=== PATIENT | female | born 1940 | race Two or more races ===

== ENCOUNTER → 2017-11-17 | Emergency (ER) | payer OTHER ==
[~2017-11-17] VITALS: Ht 165.1 cm; Wt 95.3 kg
[~2017-11-17] MED LIST: AVALIDE; PNEU16DI2; PROTONIX40 M1; SYNTHROID112 MCG; TOPROL XL100 M1; XARELTO20 MG
== END | disposition home or self-care (01) ==
LOC: ER 11:25
DX: K29.60 Other gastritis without bleeding (principal)

== ENCOUNTER 2017-11-21 17:33 | Emergency (ER) | payer OTHER ==
[~2017-11-21] VITALS: Ht 165.1 cm; Wt 95.3 kg
[~2017-11-21 17:33] MED LIST changes: -PNEU16DI2
[2017-11-21] MEDS ORDERED: PNEU16DI2 (17:59)
== END 2017-11-22 02:33 | disposition home or self-care (01) ==
LOC: ER 17:33
DX: K29.70 Gastritis, unspecified, without bleeding (principal)

== ENCOUNTER → 2022-10-01 | Emergency (ER) | payer OTHER ==
[~2022-10-01] VITALS: Ht 165.1 cm; Wt 95.3 kg
[~2022-10-01] MED LIST changes: +DICLOFENAC SODI75 MG PO; +IRBESARTAN300 MG PO; +METFORMIN HCL1000 M3 PO; +PNEU16DI2
== END | disposition home or self-care (01) ==
LOC: ER 14:46
DX: M12.571 Traumatic arthropathy, right ankle and foot (principal); Z88.0 Allergy status to penicillin

== ENCOUNTER 2024-12-12 19:58 | Inpatient (IN) | payer OTHER ==
[~2024-12-12] VITALS: Ht 162.6 cm; Wt 89.8 kg
[2024-12-12] MEDS ORDERED: FAMOtidine 10 MG/ML (4ML VIAL) IV ONE (21:30)
[2024-12-12] MEDS ORDERED: 0.9 % SODIUM CHLORIDE 1,000 ML IV ONE (21:30)
[2024-12-12] MEDS ORDERED: FAMOTIDINE/PF 20 MG/2 ML VIAL ONE (21:55)
[2024-12-12] MEDS ORDERED: KETOROLAC TROMETHAMINE 30 MG VIAL IV ONE (23:45)
[2024-12-13 00:28] LABS: BASO % 0.4 % (0.1-1.2); EOS # 0.06 (0.04-0.54); EOS % 0.6 % (0.7-7.0); HEMATOCRIT 43.1 % (34.1-44.9); HEMOGLOBIN 13.9 g/dL (11.2-15.7); LYMPH # 1.28 (1.18-3.74); MEAN CORPUSCULAR HEMOGLOBIN 31.9 pg (25.6-32.2); MONO # 0.66 (0.24-0.82); MONO % 6.7 % (4.7-12.5); NEUT # 7.77 (1.56-6.13); NEUT % 79.1 % (34.0-71.1); PLATELET COUNT 218 K/uL (163-369); RED BLOOD COUNT 4.36 M/uL (3.93-5.22); RED CELL DISTRIBUTION WIDTH 12.9 % (11.6-14.4)
[2024-12-13 00:48] LABS: PROTHROMBIN TIME 10.9 SECONDS (9.0-11.5)
[2024-12-13 01:08] LABS: ALBUMIN 3.8 gm/dL (3.4-5.0); BILIRUBIN TOTAL 1.24 mg/dL (0.3-1.2); CALCIUM 10.8 mg/dL (8.5-10.1); CREATININE SERUM 0.89 mg/dL (0.55-1.02); GFR 60.14; GLOBULINA 4.1 G/DL (2.4-3.5); POTASSIUM 4.19 mEq/L (3.5-5.1); TOTAL PROTEIN 7.9 gm/dL (6.4-8.2)
[2024-12-13] MEDS ORDERED: KETOROLAC TROMETHAMINE 30 MG VIAL ONE (01:48)
[2024-12-13] MEDS ORDERED: LIDOCAINE HCL VISCOUS 20MG/ML BLIST 15ML MM ONE (07:17)
[2024-12-13] MEDS ORDERED: CIPROFLOXACIN IN 5 % DEXTROSE 200 ML IV SCH (17:29)
[2024-12-13] MEDS ORDERED: FAMOTIDINE/PF 20 MG in 0.9 % SODIUM CHLORIDE 8 ML IV PUSH SCH (17:30)
[2024-12-13] MEDS ORDERED: 0.9 % SODIUM CHLORIDE 1,000 ML IV SCH (17:30)
[2024-12-13] MEDS ORDERED: ONDANSETRON HCL 4 MG in 0.9 % SODIUM CHLORIDE 50 ML IV PRN (17:30)
[2024-12-13] MEDS ORDERED: MORPHINE SULFATE 4 MG/ML CARTRIDGE IV PRN (17:30)
[2024-12-13] MEDS ORDERED: DEXTROSE 50 % IN WATER 0.5 G/ML VIAL IV PRN (17:45)
[2024-12-13] MEDS ORDERED: INSULIN LISPRO 1,000 UNIT/10 ML UNITS SUBCUTANEO PRN (17:45)
[2024-12-13] MEDS ORDERED: ENALAPRILAT DIHYDRATE 1.25 MG/ML VIAL IV SCH (18:00)
[2024-12-13] MEDS ORDERED: ENALAPRILAT DIHYDRATE 1.25 MG/ML VIAL IV ONE (18:11)
[2024-12-13] MEDS ORDERED: CIPROFLOXACIN IN 5 % DEXTROSE 400 MG/200 ML PIGGYBAG IV ONE (18:11)
[2024-12-13] MEDS ORDERED: FAMOTIDINE/PF 20 MG/2 ML VIAL ONE (18:12)
[2024-12-13] MEDS ORDERED: METRONIDAZOLE/SODIUM CHLORIDE 500 MG/100 ML PIGGYBACK IV ONE (18:12)
[2024-12-13 18:32] LABS: INR 1.04; PROTHROMBIN TIME 11.3 SECONDS (9.0-11.5)
[2024-12-13 19:02] VITALS: BP 116/72; O2SAT 96
[2024-12-13] MEDS ORDERED: METRONIDAZOLE/SODIUM CHLORIDE 100 ML IV SCH (21:00)
[2024-12-14 02:47] VITALS: BP 118/72; O2SAT 97
[2024-12-14 09:09] VITALS: BP 107/66; O2SAT 95
[2024-12-14 16:42] LABS: URINE APPEARANCE Cloudy; URINE BILIRRUBIN Small (NEGATIVE); URINE BLOOD Negative; URINE COLOR Orange; URINE GLUCOSE Negative (NEGATIVE); URINE KETONE Negative (NEGATIVE); URINE LEUKOCYTE Small; URINE NITRATE Negative; URINE PROTEIN Trace (NEGATIVE)
[2024-12-14 16:51] LABS: URINE CAST 3.38 uL (0.0-1.40)
[2024-12-14 17:01] VITALS: BP 121/67; O2SAT 98
[2024-12-14 17:28] LABS: URINE BACTERIA > 9821.5 uL (0.0-1933); URINE EPITHELIAL CELLS > 201.7 uL (0.0-38.8); URINE WBC > 5548.3 uL (0.0-23.2)
[2024-12-15 02:13] VITALS: BP 106/62; O2SAT 98
[2024-12-15 08:48] VITALS: BP 130/80
== END 2024-12-15 17:34 | disposition home or self-care (01) | DRG 389 ==
LOC: ER 19:58 → MEDJ 12-13 17:40
PROVIDERS: General Practice; ADMIT Internal Medicine; ATTEND Internal Medicine
PROC: BW21YZZ Computerized Tomography (CT Scan) of Abdomen and Pelvis using Other Contrast (ICD-10-PCS; principal; 2024-12-12)
DX: K56.699 Other intestinal obstruction unspecified as to partial versus complete obstruction (principal); K43.6 Other and unspecified ventral hernia with obstruction, without gangrene; E03.9 Hypothyroidism, unspecified; I10 Essential (primary) hypertension; E11.9 Type 2 diabetes mellitus without complications; Z79.4 Long term (current) use of insulin; E78.5 Hyperlipidemia, unspecified